=== PATIENT | male | born 1960 | race Caucasian/White ===

== ENCOUNTER 2018-08-06 02:10 | Outpatient (CLI) | payer BC, SELFPAY ==
[2018-08-06 12:02] LABS: ALT 45 U/L (12-78); AST 26 U/L (15-37); Albumin 3.9 g/dL (3.4-5.0); Alkaline Phosphatase 83 U/L (46-116); Anion Gap 9.5 mmol/L (3-11); BUN 10 mg/dL (7-18); Bilirubin, Total 0.4 mg/dL (0.2-1.0); CO2 28.5 mmol/L (21.0-32.0); CREATININE 0.79 mg/dL (0.70-1.30); Calcium 8.7 mg/dL (8.5-10.1); Chloride 99 mmol/L (98-107); Cholesterol 156 mg/dL (50-200); Glucose 98 mg/dL (70-100); HDL Cholesterol 57 mg/dL (40-60); LDL CHOLESTEROL 90 mg/dL (<100); Potassium 4.9 mmol/L (3.5-5.1); Sodium 137 mmol/L (136-145); Total Protein 7.7 g/dL (6.4-8.2); Triglyceride 44 mg/dL (30-150)
== END 2018-08-06 02:30 ==
PROVIDERS: PCP Family Medicine; Visit Provider Family Medicine
DX: Z00.00 Encounter for general adult medical examination without abnormal findings (principal); I10 Essential (primary) hypertension; E78.5 Hyperlipidemia, unspecified
CPT/HCPCS: 36415; 80053; 80061; 83721

== ENCOUNTER 2020-08-14 13:32 | Outpatient (REF) | payer BC, SELFPAY ==
[2020-08-14 14:33] LABS: ALT 51 U/L (16-63); AST 34 U/L (15-37); Albumin 4.4 g/dL (3.4-5.0); Alkaline Phosphatase 77 U/L (46-116); Anion Gap 10.1 mmol/L (3-11); BUN 9 mg/dL (7-18); Bilirubin, Total 0.6 mg/dL (0.2-1.0); CO2 26.9 mmol/L (21.0-32.0); CREATININE 0.8 mg/dL (0.70-1.30); Calcium 8.8 mg/dL (8.5-10.1); Calculated LDL 96 mg/dL (<100); Chloride 98 mmol/L (98-107); Cholesterol 170 mg/dL (<200); GGT 135 U/L (15-85); Glucose 110 mg/dL (74-106); HDL Cholesterol 66 mg/dL (40-60); Potassium 4.7 mmol/L (3.5-5.1); Sodium 135 mmol/L (136-145); Triglyceride 43 mg/dL (<150)
[2020-08-14 14:54] LABS: Total Protein 8.4 g/dL (6.4-8.2)
== END 2020-08-14 13:33 | disposition home or self-care (01) ==
LOC: LBN 13:32
PROVIDERS: PCP Family Medicine; Visit Provider Family Medicine
DX: Z00.00 Encounter for general adult medical examination without abnormal findings (principal); E78.5 Hyperlipidemia, unspecified; I10 Essential (primary) hypertension
CPT/HCPCS: 80053; 80061; 82977

== ENCOUNTER 2022-07-09 11:29 | Outpatient (CLI) | payer BC, SELFPAY ==
[2022-07-09 11:16] LABS: ALT 43 U/L (16-63); AST 33 U/L (15-37); Albumin 4.1 g/dL (3.4-5.0); Alkaline Phosphatase 86 U/L (46-116); Anion Gap 7.2 mmol/L (3-11); BUN 10 mg/dL (7-18); Bilirubin, Total 0.5 mg/dL (0.2-1.0); CO2 29.8 mmol/L (21.0-32.0); CREATININE 0.8 mg/dL (0.70-1.30); Calcium 8.8 mg/dL (8.5-10.1); Calculated LDL 75 mg/dL (<100); Chloride 98 mmol/L (98-107); Cholesterol 161 mg/dL (<200); Estimated GFR 101.32 (mL/min/1.73m2); Glucose 106 mg/dL (74-106); HDL Cholesterol 69 mg/dL (40-60); Potassium 4.4 mmol/L (3.5-5.1); Sodium 135 mmol/L (136-145); Total Protein 8.3 g/dL (6.4-8.2); Triglyceride 85 mg/dL (<150)
--- OUTSIDE RECORDS SUMMARY | 2022-07-09 11:31 | XMS_ITS | Continuity of Care Document ---
Author Name Unknown Organization [facility] Occupation[facility] l Health Address [address] [place] [address] Encounter [facility] NBR [id number] Date(s): 05/01/22 - 05/01/22 [facility] Occupational Health [address] [place] [address]- Encounter Diagnosis Encounter for examination required by Department of Transportation (DOT) (Discharge Diagnosis) - 05/01/22 Discharge Disposition: Home or Self Care Physician Outpatient Note * Jose Campbell. PA: PERFORM Event Display: Office Clinic Note Physician Authored Date: [id number] MARTIN HARRELL :1960 Age:61 years Sex:Male Visit Date:05/01/2022 History of Present Illness Presents for DOT exam. ??Patient has gained??3 to 5 pounds.?? He notes blood pressure at regular office appointments has been in normal range. ??He is currently on blood pressure medications. ??He drinks 2-3 alcoholic drinks per day.?? He denies any active medical conditions. ??Denies any back pain, ??limitations.?? No recent medical conditions. Assessment/Plan 1.??Encounter for examination required by Department of Transportation (DOT)??Z02.89 Patient does not meet blood pressure requirements. ??He does qualify for 3-month DOT card. ??Blood pressure was checked in different??extremities??as well as after patient resting for 5 minutes. ??Was also checked with both machine and manual cuff.?? I encouraged the patient to consider??stopping alcohol intake to see if this helps lower his blood pressure also weight reduction. ??He will follow-up with primary provider. Problem List/Past Medical History Ongoing No qualifying data Historical No qualifying data Medications No active medications Allergies No active allergies Electronically Signed on 05/01/22 10:45 AM Jose BRADSHAW
[2022-07-09 18:04] LABS: PSA, Screening 0.4 ng/mL (<=4.5)
== END 2022-07-09 11:30 | disposition home or self-care (01) ==
LOC: LBO 11:30
PROVIDERS: PCP Family Medicine; Visit Provider Family Medicine
DX: Z00.00 Encounter for general adult medical examination without abnormal findings (principal); Z12.5 Encounter for screening for malignant neoplasm of prostate; I10 Essential (primary) hypertension; E78.5 Hyperlipidemia, unspecified
CPT/HCPCS: 36415; 80053; 80061; 84153

== ENCOUNTER 2023-08-29 02:00 | Outpatient (CLI) | payer BC, SELFPAY ==
[2023-08-29 07:41] LABS: ALT 52 U/L (16-63); AST 33 U/L (15-37); Alkaline Phosphatase 80 U/L (46-116); Anion Gap 9.5 mmol/L (3-11); BUN 9 mg/dL (7-18); Bilirubin, Total 0.5 mg/dL (0.2-1.0); CO2 28.5 mmol/L (21.0-32.0); CREATININE 0.8 mg/dL (0.70-1.30); Calcium 8.7 mg/dL (8.5-10.1); Chloride 99 mmol/L (98-107); Estimated GFR 100.69 (mL/min/1.73m2); Glucose 118 mg/dL (74-106); Potassium 4.5 mmol/L (3.5-5.1); Sodium 137 mmol/L (136-145); Total Protein 8.3 g/dL (6.4-8.2)
== END 2023-08-29 02:01 | disposition home or self-care (01) ==
LOC: LBO 02:00
PROVIDERS: PCP Family Medicine; Visit Provider Family Medicine
DX: Z00.00 Encounter for general adult medical examination without abnormal findings (principal); I10 Essential (primary) hypertension; E78.5 Hyperlipidemia, unspecified; R63.5 Abnormal weight gain
CPT/HCPCS: 36415; 80053

== ENCOUNTER 2024-05-14 01:02 | Outpatient (CLI) | payer BC, SELFPAY ==
[2024-05-14 09:28] LABS: ALT 31 U/L (16-63); AST 25 U/L (15-37); Albumin 3.6 g/dL (3.4-5.0); Alkaline Phosphatase 116 U/L (46-116); Anion Gap 5.9 mmol/L (3-11); BUN 8 mg/dL (7-18); Bilirubin, Total 0.41 mg/dL (0.2-1.0); CO2 31.1 mmol/L (21.0-32.0); CREATININE 0.9 mg/dL (0.70-1.30); Calcium 8.5 mg/dL (8.5-10.1); Calculated LDL 78 mg/dL (<100); Chloride 100 mmol/L (98-107); Cholesterol 144 mg/dL (<200); Estimated GFR 96.57 (mL/min/1.73m2); Glucose 130 mg/dL (74-106); HDL Cholesterol 50 mg/dL (40-60); Potassium 4.6 mmol/L (3.5-5.1); Sodium 137 mmol/L (136-145); Total Protein 7.8 g/dL (6.4-8.2); Triglyceride 83 mg/dL (<150)
[2024-05-14 18:44] LABS: PSA, Screening 0.3 ng/mL (<=4.5)
[2024-05-17 22:37] LABS: Hepatitis C Ab w Rflx HCV PCR Negative (Negative)
== END 2024-05-14 01:03 | disposition home or self-care (01) ==
LOC: LBO 01:02
PROVIDERS: PCP Family Medicine; Visit Provider Family Medicine
DX: Z00.00 Encounter for general adult medical examination without abnormal findings (principal); I10 Essential (primary) hypertension
CPT/HCPCS: 36415; 80053; 80061; 84153; 86803